=== PATIENT | male | born 1980 | race Caucasian/White ===

== ENCOUNTER 2018-11-15 00:35 | Emergency (ER) | payer OTHER ==
--- NOTE | 2018-11-15 01:38 | ERPHSYRPT ---
- History of Present Illness Source: patient, family Exam Limitations: no limitations Patient Subjective Stated Complaint: pt is alert and oriented. pt is ambulatory with a steady gait. pt comes in with c/o back pain, confusion, muscle tightness. pt states that he injured his back on or Thursday while working out. pt states that he has some "tightness" in his back on that day. pt does no know if he rested or not after the injury. pt states that he has also been confused. no obvious external injury to the back visualized. no tenderness with palpation. pt states that pain is in his lower back. pt states that he had a nose bleed and was coughing up blood earlier in the night. pt has a very flat affect, pt seems distracted and uneasy. pt is not giving me clear answers to my questions and is repeating himself. pt asked the person in the room if he "had back surgery earlier in the week" and the person in the room stated that "no it was his sister who had back surgery." pt is looking to his friend in the room to answer the questions I was asking him. Triage Nursing Assessment: see above Timing/Duration: day(s) Method of Injury: lifting Quality: sharp, aching, stabbing Back Pain Location: lumbar spine, paraspinous muscles Severity of Pain-Max: moderate Severity of Pain-Current: moderate Modifying Factors: Improves With: movement Associated Symptoms: denies symptoms Previous symptoms: same symptoms as today, recently seen Immunizations Up to Date: Yes <CHANDU BRANNON - Last Filed: 11/15/18 06:45> <COREY CARMICHAEL - Last Filed: 11/15/18 08:53> - History of Present Illness Time Seen by Provider: 11/15/18 01:33 Physician History: history of low back condition and depression treated by Dr. Man since patient could not get timely appts at [facility] to use that benefit. Pt reports no trauma no abd pain , no CP or SObreath. no med changes but has had some periods when he felt confused . no fevers or resp symptoms. his nose bleed has stopped - no trauma, appears to have been from dry mucosa. no bruising or other signs of blood dyscrasias at this time. (CHANDU BRANNON) Allergies/Adverse Reactions: No Known Drug Allergies Allergy (Unverified 11/15/18 00:53) Home Medications: Venlafaxine HCl [Effexor Xr] 150 mg PO DAILY 11/15/18 [History] - Review of Systems Constitutional: No Fever, No Chills Eyes: No Symptoms Ears, Nose, & Throat: No Symptoms Respiratory: No Cough, No Dyspnea Cardiac: No Chest Pain, No Edema, No Syncope Abdominal/Gastrointestinal: No Abdominal Pain, No Nausea, No Vomiting, No Diarrhea Genitourinary Symptoms: No Dysuria Musculoskeletal: Back Pain, No Neck Pain Skin: No Rash Neurological: No Dizziness, No Focal Weakness, No Sensory Changes Psychological: Depression, Suicidal Ideations (reported by friend in ER ) Endocrine: No Symptoms Hematologic/Lymphatic: No Symptoms Immunological/Allergic: No Symptoms All Other Systems: Reviewed and Negative <CHANDU BRANNON - Last Filed: 11/15/18 06:45> - Past Medical History Pertinent Past Medical History: No - Past Surgical History Past Surgical History: No Other Surgical History: growth removed from right side as a child - Social History Smoking Status: Never smoker Drug Use: none <CHADNU BRANNON - Last Filed: 11/15/18 06:45> - Physical Exam General Appearance: no apparent distress, alert Eye Exam: PERRL/EOMI, eyes nml inspection Neck Exam: normal inspection, non-tender, supple, full range of motion, No meningismus, No midline tenderness Respiratory Exam: normal breath sounds, lungs clear, No respiratory distress Cardiovascular Exam: regular rate/rhythm, normal heart sounds Gastrointestinal Exam: soft, No tenderness, No mass Rectal Exam: deferred Back Exam: decreased range of motion, muscle spasm, No vertebral tenderness, No point tenderness Extremity Exam: normal inspection, normal range of motion, No calf tenderness, No pedal edema Peripheral Pulses: carotid (R): 2+, carotid (L): 2+, femoral (R): 2+, femoral (L ): 2+, dorsalis-pedis (R): 2+, dorsalis-pedis (L): 2+ Neurologic Exam: alert, oriented x 3, cooperative, rental clerk tool and equipment II-XII nml as tested, normal mood/affect, nml station & gait, sensation nml, No motor deficits Skin Exam: normal color, warm, dry, No rash SpO2 Interpretation: normal SpO2: 99 O2 Delivery: Room Air <CHANDU BRANNON - Last Filed: 11/15/18 06:45> - Nursing Vital Signs Nursing Vital Signs: Initial Vital Signs Pulse Rate 62 11/15/18 00:42 Respiratory Rate 18 11/15/18 00:42 Blood Pressure 138/87 11/15/18 00:42 O2 Sat by Pulse Oximetry 98 11/15/18 00:42 Pain Scale Pain Intensity [Lower 7 Posterior Back] Pain Intensity 7 - Course Nursing assessment & vital signs reviewed: Yes EKG Interpreted by Me: Sinus Warner, NORMAL INTERVALS, Non-specific ST Changes <CHANDU BRANNON - Last Filed: 11/15/18 06:45> Ordered Tests: Active Orders 24 hr Category Date Time Status EKG-ER Only STAT Care 11/15/18 01:46 Active IV Insertion STAT Care 11/15/18 01:46 Active Psychiatric Consult STAT Cons 11/15/18 01:47 Active ACETAMINOPHEN Stat Lab 11/15/18 02:35 Completed CBC W DIFF Stat Lab 11/15/18 02:35 Completed CMP Stat Lab 11/15/18 02:35 Completed ETHYL ALCOHOL Stat Lab 11/15/18 02:35 Completed SALICYLATE Stat Lab 11/15/18 02:35 Completed T4 (Thyroxine) Stat Lab 11/15/18 02:35 Completed TSH, 3RD Generation Stat Lab 11/15/18 02:35 Completed UA W/RFX UR CULTURE Stat Lab 11/15/18 02:35 Completed Urine Triage Profile Stat Lab 11/15/18 02:35 Completed Medication Summary Discontinued Medications Generic Name Dose Route Start Last Admin Trade Name Markq PRN Reason Stop Dose Admin Sodium Chloride 1,000 mls @ 999 mls/hr 11/15/18 01:46 11/15/18 03:02 Sodium Chloride 0.9% 1000 Ml IV 11/15/18 02:46 Infused .Q1H1M STA Infusion Sodium Chloride Confirm 11/15/18 01:56 Sodium Chloride 0.9% 1000 Ml Administered 11/15/18 01:57 Dose 1,000 mls @ ud .ROUTE .STK-MED ONE Ketorolac Tromethamine 30 mg 11/15/18 01:51 11/15/18 02:02 Toradol 30 Mg Injection IV 11/15/18 01:52 30 mg STAT ONE Administration Ketorolac Tromethamine Confirm 11/15/18 01:56 Toradol 30 Mg Injection Administered 11/15/18 01:57 Dose 30 mg .ROUTE .STK-MED ONE Ketorolac Tromethamine 30 mg 11/15/18 02:57 11/15/18 02:59 Toradol 30 Mg Injection IV 11/15/18 02:58 30 mg STAT ONE Administration Ketorolac Tromethamine Confirm 11/15/18 02:58 Toradol 30 Mg Injection Administered 11/15/18 02:59 Dose 30 mg .ROUTE .STK-MED ONE Ondansetron HCl 4 mg 11/15/18 01:46 11/15/18 02:02 Zofran 4 Mg/2 Ml Vial IV 11/15/18 01:47 4 mg STAT ONE Administration Ondansetron HCl Confirm 11/15/18 01:56 Zofran 4 Mg/2 Ml Vial Administered 11/15/18 01:57 Dose 4 mg .ROUTE .[facility] ONE Lab/Rad Data: Laboratory Result Diagrams 11/15/18 02:35 11/15/18 02:35 Laboratory Results 11/15/18 11/15/18 11/15/18 Range/Units 02:35 02:35 02:35 WBC (4.0-10.5) K/mm3 RBC (4.1-5.6) M/mm3 Hgb (12.5-18.0) gm/dl Hct (42-50) % MCV (78-100) fl MCH (26-32) pg MCHC (32-36) g/dl RDW (11.5-14.0) % Plt Count (150-450) K/mm3 MPV (6-9.5) fl Gran % (36.0-66.0) % Eos # (Auto) (0-0.5) Absolute Lymphs (auto) (1.0-4.6) Absolute Monos (auto) (0.0-1.3) Lymphocytes % (24.0-44.0) % Monocytes % (0.0-12.0) % Eosinophils % (0.00-5.0) % Basophils % (0.0-0.4) % Absolute Granulocytes (1.4-6.9) Basophils # (0-0.4) Sodium 140 (137-145) mmol/L Potassium 4.7 (3.5-5.1) mmol/L Chloride 107 (98-107) mmol/L Carbon Dioxide 23 (22-30) mmol/L Anion Gap 14.7 (5-15) MEQ/L BUN 21 H (9-20) mg/dL Creatinine 0.86 (0.66-1.25) mg/dL Estimated GFR > 60.0 ML/MIN Glucose 81 (74-106) mg/dL Calcium 9.7 (8.4-10.2) mg/dL Total Bilirubin 0.80 (0.2-1.3) mg/dL AST 44 (17-59) U/L ALT 17 (0-50) U/L Alkaline Phosphatase 47 (38-126) U/L Serum Total Protein 7.6 (6.3-8.2) g/dL Albumin 4.2 (3.5-5.0) g/dL Thyroxine (T4) 5.43 L (5.53-10.96) ug/dL TSH 3rd Generation 5.780 H (0.47-4.68) mIU/L Urine Color YELLOW (YELLOW) Urine Appearance CLEAR (CLEAR) Urine pH 5.0 (5-6) Ur Specific Stanton 1.025 (1.005-1.025) Urine Protein NEGATIVE (Negative) Urine Ketones NEGATIVE (NEGATIVE) Urine Blood NEGATIVE (0-5) Giuliano/ul Urine Nitrite NEGATIVE (NEGATIVE) Urine Bilirubin NEGATIVE (NEGATIVE) Urine Urobilinogen NEGATIVE (0-1) mg/dL Ur Leukocyte Esterase NEGATIVE (NEGATIVE) Urine WBC (Auto) NONE (0-5) /HPF Urine RBC (Auto) NONE (0-2) /HPF U Epithel Cells (Auto) NONE (FEW) /HPF Urine Bacteria (Auto) NONE (NEGATIVE) /HPF Urine Mucus (Auto) SLIGHT (NEGATIVE) /HPF Urine Culture Reflexed NO (NO) Urine Glucose NEGATIVE (NEGATIVE) mg/dL Salicylates < 1.0 L (2-20) mg/dL Urine Opiates Level NEGATIVE (NEGATIVE) Ur Methadone NEGATIVE (NEGATIVE) Acetaminophen < 10 L (10-30) ug/ml Urine Barbiturates NEGATIVE (NEGATIVE) Ur Phencyclidine (PCP) NEGATIVE (NEGATIVE) Urine Amphetamine NEGATIVE (NEGATIVE) U Benzodiazepine Level NEGATIVE (NEGATIVE) Urine Cocaine NEGATIVE (NEGATIVE) Urine Marijuana (THC) NEGATIVE (NEGATIVE) Ethyl Alcohol < 10 (0-10) mg/dL 11/15/18 Range/Units 02:35 WBC 6.2 (4.0-10.5) K/mm3 RBC 4.34 (4.1-5.6) M/mm3 Hgb 14.1 (12.5-18.0) gm/dl Hct 41.5 L (42-50) % MCV 95.6 (78-100) fl MCH 32.5 H (26-32) pg MCHC 34.0 (32-36) g/dl RDW 13.2 (11.5-14.0) % Plt Count 240 (150-450) K/mm3 MPV 10.9 H (6-9.5) fl Gran % 56.5 (36.0-66.0) % Eos # (Auto) 0.14 (0-0.5) Absolute Lymphs (auto) 1.94 (1.0-4.6) Absolute Monos (auto) 0.61 (0.0-1.3) Lymphocytes % 31.2 (24.0-44.0) % Monocytes % 9.8 (0.0-12.0) % Eosinophils % 2.3 (0.00-5.0) % Basophils % 0.2 (0.0-0.4) % Absolute Granulocytes 3.51 (1.4-6.9) Basophils # 0.01 (0-0.4) Sodium (137-145) mmol/L Potassium (3.5-5.1) mmol/L Chloride (98-107) mmol/L Carbon Dioxide (22-30) mmol/L Anion Gap (5-15) MEQ/L BUN (9-20) mg/dL Creatinine (0.66-1.25) mg/dL Estimated GFR ML/MIN Glucose (74-106) mg/dL Calcium (8.4-10.2) mg/dL Total Bilirubin (0.2-1.3) mg/dL AST (17-59) U/L ALT (0-50) U/L Alkaline Phosphatase (38-126) U/L Serum Total Protein (6.3-8.2) g/dL Albumin (3.5-5.0) g/dL Thyroxine (T4) (5.53-10.96) ug/dL TSH 3rd Generation (0.47-4.68) mIU/L Urine Color (YELLOW) Urine Appearance (CLEAR) Urine pH (5-6) Ur Specific Stanton (1.005-1.025) Urine Protein (Negative) Urine Ketones (NEGATIVE) Urine Blood (0-5) Giuliano/ul Urine Nitrite (NEGATIVE) Urine Bilirubin (NEGATIVE) Urine Urobilinogen (0-1) mg/dL Ur Leukocyte Esterase (NEGATIVE) Urine WBC (Auto) (0-5) /HPF Urine RBC (Auto) (0-2) /HPF U Epithel Cells (Auto) (FEW) /HPF Urine Bacteria (Auto) (NEGATIVE) /HPF Urine Mucus (Auto) (NEGATIVE) /HPF Urine Culture Reflexed (NO) Urine Glucose (NEGATIVE) mg/dL Salicylates (2-20) mg/dL Urine Opiates Level (NEGATIVE) Ur Methadone (NEGATIVE) Acetaminophen (10-30) ug/ml Urine Barbiturates (NEGATIVE) Ur Phencyclidine (PCP) (NEGATIVE) Urine Amphetamine (NEGATIVE) U Benzodiazepine Level (NEGATIVE) Urine Cocaine (NEGATIVE) Urine Marijuana (THC) (NEGATIVE) Ethyl Alcohol (0-10) mg/dL - Progress Progress: improved, re-examined Counseled pt/family regarding: lab results, diagnosis, need for follow-up, rad results <CHANDU BRANNON - Last Filed: 11/15/18 06:45> <COREY CARMICHAEL - Last Filed: 11/15/18 08:53> - Progress Progress Note: 11/15/18 03:08 awaiting telemental which does require some additional time . 11/15/18 04:37 still awaiting telemental review. 11/15/18 05:12 pt has minimally elevated TSH and minimally reduced T4 , discussed with pt and he will wait for confirmation with his PCP to consider if synthroid or other Tx indicated . discussed the potential that this may be a factor in some o f his current symptoms. 11/15/18 06:09 taking additional time due to faxing lab info and wait time for telemedicine to call provider in . 11/15/18 06:45 turned pt over at change of shift to Dr. Carmichael after discussion of pending evaluation for final determination of disposition. (CHANDU BRANNON) Pt was evaluated by tele psych. Per their recommendations, pt will follow with [facility]'s program with Viraj Chavez (therapist) on Thursday11/16/18 at 11:15 AM. The pt should continue his meds as prescribed. Pt should call the center on Thursday in the AM, to confirm the appointement. All the recommendations were given by Clarice JACOBO. 11/15/18 08:48 (COREY CARMICHAEL) - Departure Critical Care Time: No <CHANDU BRANNON - Last Filed: 11/15/18 06:45> - Departure Departure Disposition: Home <COREY CARMICHAEL - Last Filed: 11/15/18 08:53> - Departure Clinical Impression: Lumbar strain, Borderline hypothyroidism, Depression Condition: Good Referrals: KADY MAN MD [Primary Care Provider] - Instructions: Seasonal Affective Disorder, Depression, Adult (DC), Low Back Pain (DC), Hypothyroidism (Underactive Thyroid) (DC), Post-traumatic Stress Disorder (DC) Additional Instructions: F/U with 's program with Viraj Chavez therapist on 11/16/18 at 11:15. Continue taking meds as prescribed.
[2018-11-15] MEDS ORDERED: Sodium Chloride 0.9% 1000 ML 1,000 ML ONE (01:56)
[2018-11-15] MEDS ORDERED: Zofran 4 MG/2 ML VIAL ONE (01:56)
[2018-11-15] MEDS ORDERED: TORAdol 30 mg Injection ONE ×2 (01:56→02:58)
[2018-11-15] MEDS: Zofran 4 MG/2 ML VIAL IV ONE (02:02)
[2018-11-15] MEDS: Sodium Chloride 0.9% 1000 ML 1,000 ML IV STA (02:02)
[2018-11-15] MEDS: TORAdol 30 mg Injection IV ONE ×2 (02:02→02:59)
[2018-11-15 02:33] LABS: Appearance CLEAR (CLEAR); Bilirubin NEGATIVE (NEGATIVE); Blood NEGATIVE Ery/ul (0-5); Glucose NEGATIVE (NEGATIVE); Ketones NEGATIVE (NEGATIVE); Leukocyte Esterase NEGATIVE (NEGATIVE); Mucus SLIGHT /HPF (NEGATIVE); Nitrite NEGATIVE (NEGATIVE); Protein,Urine Dip NEGATIVE (Negative); Specific Gravity 1.025 (1.005-1.025); Urobilinogen NEGATIVE mg/dL (0-1)
[2018-11-15 02:39] LABS: BASOPHIL % 0.2 % (0.0-0.4); Basophil (Absolute #) 0.01 (0-0.4); Eosinophil % 2.3 % (0.00-5.0); Eosinophil (Absolute #) 0.14 (0-0.5); Granulocyte Absolute (ANC) 3.51 (1.4-6.9); Granulocytes % 56.5 % (36.0-66.0); Hematocrit 41.5 % (42-50); Hemoglobin 14.1 gm/dl (12.5-18.0); Lymphocyte (Absolute #) 1.94 (1.0-4.6); Lymphocytes % 31.2 % (24.0-44.0); Mean Cell Volume 95.6 fl (78-100); Mean Corpuscular Hemoglobin 32.5 pg (26-32); Mean Platelet Volume 10.9 fl (6-9.5); Monocyte (Absolute #) 0.61 (0.0-1.3); Monocytes % 9.8 % (0.0-12.0); Platelet Count 240 K/mm3 (150-450); Red Blood Count 4.34 M/mm3 (4.1-5.6); Red Cell Distribution Width 13.2 % (11.5-14.0); White Blood Count 6.2 K/mm3 (4.0-10.5)
[2018-11-15 02:44] VITALS: O2SAT 99
[2018-11-15 02:47] LABS: Amphetamine,Urine NEGATIVE (NEGATIVE); Barbiturate,Urine NEGATIVE (NEGATIVE); Benzodiazepine,Urine NEGATIVE (NEGATIVE); Cocaine,Urine NEGATIVE (NEGATIVE); Methadone,Urine NEGATIVE (NEGATIVE); Opiate,Urine NEGATIVE (NEGATIVE); PCP,Urine NEGATIVE (NEGATIVE); THC,Urine NEGATIVE (NEGATIVE)
[2018-11-15 02:55] LABS: ALBUMIN 4.2 g/dL (3.5-5.0); Carbon Dioxide 23 mmol/L (22-30); Glucose 81 mg/dL (74-106)
[2018-11-15 04:00] LABS: Potassium 4.7 mmol/L (3.5-5.1); Total Protein 7.6 g/dL (6.3-8.2)
[2018-11-15 04:01] LABS: SALICYLATE < 1.0 mg/dL (2-20); SGOT/AST 44 U/L (17-59)
[2018-11-15 04:14] LABS: ALKALINE PHOSPHATASE 47 U/L (38-126); SGPT/ALT 17 U/L (0-50)
[2018-11-15 04:34] LABS: ANION GAP 14.7 MEQ/L (5-15); BLOOD UREA NITROGEN 21 mg/dL (9-20); CHLORIDE 107 mmol/L (98-107); Calcium 9.7 mg/dL (8.4-10.2); Creatinine 1 0.86 mg/dL (0.66-1.25); ETHYL ALCOHOL < 10 mg/dL (0-10); SODIUM 140 mmol/L (137-145)
[2018-11-15 04:57] LABS: ACETAMINOPHEN < 10 ug/ml (10-30)
[2018-11-15 05:46] VITALS: PULSE 48
[2018-11-15 08:53] VITALS: BP 115/76
== END 2018-11-15 09:04 | disposition home or self-care (01) ==
LOC: ED 00:35
DX: S39.012A Strain of muscle, fascia and tendon of lower back, initial encounter (principal); E03.9 Hypothyroidism, unspecified; F32.9 Major depressive disorder, single episode, unspecified
CPT/HCPCS: 36000; 36415; 80053; 80307; 81001; 84436; 84443; 85025; 90791; 93005; 96360; 96374; 96375; 96376; 99285; G0481; Q3014; J1885; J2405; G0480